=== PATIENT | female | born 1965 | race Caucasian/White ===

== ENCOUNTER → 2019-07-20 | Outpatient (CLI) | payer BC ==
--- NOTE | 2019-07-20 14:46 | Diagnostic Imaging Report ---
EXAMINATION: CT Chest without contrast. TECHNIQUE: Multiple contiguous axial images were obtained through the chest without the use of intravenous contrast. All CT scans use one or more of the following dose optimizing techniques: automated exposure control, MA and/or KvP adjustment based on a patient size and exam type, or iterative reconstruction. HISTORY: Abnormal chest radiograph COMPARISON: None available. FINDINGS: There is no edema or pneumonia. No pleural effusion. No pneumothorax. There is a 6 mm part solid nodule in the left upper lobe with the solid portion measuring 4 mm. There is biapical scarring. Heart size is normal. There are no coronary artery calcifications. No pericardial effusion. Aorta is normal in caliber. There is no axillary or supraclavicular lymphadenopathy. There is no mediastinal lymphadenopathy. Left chest wall peripherally calcified skin lesion is likely a sebaceous spectrum lesion. Limited views of the upper abdomen are unremarkable. There are no suspicious osseus lesions. IMPRESSION: 1. Partially solid left upper lobe nodule measuring up to 6 mm. According to the Fleischner Society guidelines: Recommend CT at 6-12 months and then again at 18-24 months (the second CT is optional in a low risk patient). Dictated by: Dictated on workstation # [id number]
== END ==
LOC: RAD FS 13:17
PROVIDERS: ATTEND Family Medicine
DX: J18.9 Pneumonia, unspecified organism (principal); R91.8 Other nonspecific abnormal finding of lung field
CPT/HCPCS: 71250

== ENCOUNTER → 2020-04-04 | Outpatient (CLI) | payer BC ==
--- NOTE | 2020-04-04 14:22 | Diagnostic Imaging Report ---
PROCEDURE: CT chest without contrast. TECHNIQUE: Multiple contiguous axial images were obtained through the chest without the use of intravenous contrast. Auto Exposure Controls were utilized during the CT exam to meet ALARA standards for radiation dose reduction. INDICATION: Lung nodule. The previous CT chest exam of 07/20/2019 noted a 6 mm part solid nodule in the left upper lung. On the corresponding axial level of this exam there is no identifiable nodule in the left upper lung (image 33 of 155). There is no abnormality evident on the coronal or sagittal reconstructed images either. The apical scarring in both lungs seen previously is again evident and no different. There are emphysematous changes involving both lungs as well. There are no other lung masses identified. There is no sign of failure, pneumonia or pleural effusion to indicate an acute abnormality either. The heart size is within normal limits. There are no coronary artery calcifications evident. The aorta is not abnormally dilated. There is no obvious mediastinal or hilar adenopathy. The thyroid gland was not well visualized. The suspected sebaceous cyst in the lateral aspect of the left breast seen previously is again evident and no different. There is no obvious breast mass. The sections through the upper abdomen failed to show any sign of an acute abnormality. The bone windows are unremarkable for a fracture or for a destructive lesion. IMPRESSION: 1. The 6 mm nodule in the left upper lung seen on the prior exam is no longer evident. This may have been related to a small focus of pneumonia/atelectasis which has subsequently resolved. If further study is desired, then a follow-up CT chest exam in 6 months should be obtained. 2. There is no other parenchymal lung mass noted and there is no sign of an acute cardiopulmonary abnormality. Dictated by: Dictated on workstation # [id number]
== END ==
LOC: RAD FS 13:16
PROVIDERS: ATTEND Family Medicine
DX: R91.1 Solitary pulmonary nodule (principal)
CPT/HCPCS: 71250

== ENCOUNTER → 2022-12-05 | Outpatient (CLI) | payer SELFPAY ==
--- NOTE | 2022-12-05 14:22 | Diagnostic Imaging Report ---
EXAMINATION: CT chest without contrast. TECHNIQUE: Multiple contiguous axial images were obtained through the chest without the use of intravenous contrast. All CT scans use one or more of the following dose optimizing techniques: Automated exposure control, MA and/or KvP adjustment based on patient size and exam type or iterative reconstruction. HISTORY: Lung nodule. COMPARISON: 04/04/2020. FINDINGS: Thyroid: The thyroid is normal. Mediastinum: Heart size is normal without significant pericardial effusion. Calcifications of the aorta and coronary vessels. Thoracic aorta is normal in caliber. No suspicious lymphadenopathy. Lungs and airways: There is scarring within the lung apices and lung bases. No focal consolidation, pleural effusion, or pneumothorax. There is mild atelectasis within the dependent lungs. No suspicious pulmonary lesion. The airways are normal. Upper abdomen: The subphrenic structures are normal. Musculoskeletal: Degenerative changes of the spine without suspicious osseous lesion or compression fracture. IMPRESSION: 1. No suspicious pulmonary lesion. 2. No other acute abnormality in the chest. Dictated by: Dictated on workstation # [id number]
== END ==
LOC: RAD FS 13:12
PROVIDERS: ATTEND Nurse Practitioner
DX: R91.1 Solitary pulmonary nodule (principal)
CPT/HCPCS: 71250